=== PATIENT | male | born 1940 | race Caucasian/White ===

== ENCOUNTER → 2017-03-22 | Outpatient (CLI) | payer OTHER | END | disposition home or self-care (01) | LOC: LAB 09:41 | DX: I10 Essential (primary) hypertension (principal); E03.8 Other specified hypothyroidism; E55.9 Vitamin D deficiency, unspecified; N40.0 Benign prostatic hyperplasia without lower urinary tract symptoms; R73.09 Other abnormal glucose; Z12.11 Encounter for screening for malignant neoplasm of colon ==

== ENCOUNTER 2017-07-24 07:14 | Outpatient (CLI) | payer OTHER | END 2017-07-24 07:39 | disposition home or self-care (01) | LOC: RAD 07:14 → LAB 07:14 | DX: I10 Essential (primary) hypertension (principal); R07.89 Other chest pain ==

== ENCOUNTER 2018-06-13 07:37 | Outpatient (CLI) | payer OTHER ==
[~2018-06-13] VITALS: Ht 152.4 cm; Wt 65.8 kg
== END 2018-06-13 08:00 | disposition home or self-care (01) ==
LOC: OFIC 805 07:37
DX: H61.23 Impacted cerumen, bilateral (principal); H90.3 Sensorineural hearing loss, bilateral

== ENCOUNTER 2018-06-27 07:50 | Outpatient (CLI) | payer OTHER ==
[~2018-06-27] VITALS: Ht 152.4 cm; Wt 65.8 kg
== END 2018-06-27 08:10 | disposition home or self-care (01) ==
LOC: OFIC 805 07:50
DX: H61.23 Impacted cerumen, bilateral (principal); H90.3 Sensorineural hearing loss, bilateral

== ENCOUNTER 2019-09-25 15:52 | Outpatient (CLI) | payer OTHER | END 2019-09-25 15:57 | disposition home or self-care (01) | LOC: RAD 15:52 | PROVIDERS: ATTEND General Practice | DX: M25.562 Pain in left knee (principal) ==

== ENCOUNTER 2020-05-26 09:41 | Outpatient (CLI) | payer OTHER ==
[2020-06-10] MEDS ORDERED: VOLTAREN-XR100 MG PO (11:00)
== END 2020-05-26 09:52 | disposition home or self-care (01) ==
LOC: RAD 09:41
DX: M54.16 Radiculopathy, lumbar region (principal)

== ENCOUNTER 2020-06-14 10:29 | Outpatient (CLI) | payer OTHER ==
[~2020-06-14 10:29] MED LIST: VOLTAREN-XR100 MG PO
== END 2020-06-14 11:12 | disposition home or self-care (01) ==
LOC: MRI 10:29
PROVIDERS: ATTEND Physical Medicine & Rehabilitation
DX: M51.36 Other intervertebral disc degeneration, lumbar region (principal); M62.838 Other muscle spasm
CPT/HCPCS: 72148

== ENCOUNTER 2020-06-17 07:22 | Outpatient (CLI) | payer OTHER | END 2020-06-17 07:27 | disposition home or self-care (01) | LOC: LAB 07:22 | PROVIDERS: ATTEND Physical Medicine & Rehabilitation | DX: Z03.818 Encounter for observation for suspected exposure to other biological agents ruled out (principal); R06.02 Shortness of breath ==

== ENCOUNTER → 2020-09-11 | Emergency (ER) | payer OTHER ==
[~2020-09-11] VITALS: Ht 170.2 cm; Wt 61.2 kg
[~2020-09-11] MED LIST changes: +ATORVASTATIN CA10 MG; +FORTAMET500 MG; +LEVO-T50 MCG
== END | disposition home or self-care (01) ==
LOC: ER 19:27
DX: K59.09 Other constipation (principal)

== ENCOUNTER 2021-02-27 12:01 | Outpatient (CLI) | payer OTHER | END 2021-02-27 12:08 | disposition home or self-care (01) | LOC: RAD 12:01 | DX: M43.8X5 Other specified deforming dorsopathies, thoracolumbar region (principal); M99.01 Segmental and somatic dysfunction of cervical region; M99.02 Segmental and somatic dysfunction of thoracic region; M99.03 Segmental and somatic dysfunction of lumbar region ==

== ENCOUNTER 2023-10-09 09:40 | Emergency (ER) | payer OTHER ==
[~2023-10-09] VITALS: Ht 170.2 cm; Wt 68.0 kg
[2023-10-09] MEDS ORDERED: PANTOPRAZOLE SODIUM 40 MG/VIAL VIAL IV PUSH STA (10:27)
[2023-10-09] MEDS ORDERED: KETOROLAC TROMETHAMINE 15 MG VIAL IM STA (10:28)
[2023-10-09 11:23] LABS: HEMATOCRIT 37.5 % (39.0-48.0); HEMOGLOBIN 13.1 g/dL (13-16.00); MEAN CELL VOLUME 93.8 fL (80.0-100.00); MEAN CORPUSCULAR HEMOGLOBIN 32.7 pg (27.00-32.0); MEAN CORPUSCULAR HGB CONC 34.9 g/dl (32.0-36.0); PLATELET COUNT 242 K/uL (150-450); RED BLOOD COUNT 3.99 M/uL (4.00-6.00); RED CELL DISTRIBUTION WIDTH 13.7 % (11.5-14.5)
[2023-10-09 11:32] LABS: CALCIUM 9.2 mg/dL (8.5-10.1); CREATININE SERUM 0.76 mg/dL (0.70-1.30); GFR 97.71; POTASSIUM 3.87 mEq/L (3.5-5.1)
== END 2023-10-09 12:07 | disposition home or self-care (01) ==
LOC: ER 09:40
PROVIDERS: General Practice
DX: R53.81 Other malaise (principal); K21.9 Gastro-esophageal reflux disease without esophagitis
CPT/HCPCS: 36415; 96365; 96372; 99282; J1885; J3490